=== PATIENT | male | born 1930 | race Caucasian/White ===

== ENCOUNTER 2017-08-28 11:58 | Observation (INO) | payer MEDICARE ==
[~2017-08-28] VITALS: Ht 182.9 cm; Wt 74.2 kg
--- NOTE | 2017-08-28 12:00 | NUR ---
PT DIRECTLY TO ROOM VIA WHEELCHAIR.
--- NOTE | 2017-08-28 12:27 | NUR ---
PT STATES THAT HE IS FEELING MORE SHORT OF BREATH AFTER BEGINING A NEW MEDICINE TAGRISSO 80MG THREE MONTHS AGO. APX ONE MONTH AGO SHORTNESS OF BREATH HAS BEGAN. PT IS AOX4 AND IS VERY TALKATIVE WITH NO DIFFICULTY SPEAKING. PT DENIES ANY C/P, N/V OR WEAKNESS.
--- NOTE | 2017-08-28 12:31 | NUR ---
PT MEDICATION NOT IN MED REC TAGRISSO 80 MG LAST TAKEN AT 0800 08/28/17.
[2017-08-28 12:38] LABS: HEMATOCRIT 32.2 % (39.0-50.0); HEMOGLOBIN 9.9 g/dl (14.0-18.0); IMMATURE GRANULOCYTES 0.3 % (0.0-1.0); MEAN CELL VOLUME 91.2 fL CALC (80.0-100.0); MEAN CORPUSCULAR HGB CONC 30.7 g/L CALC (32.0-36.0); NEUT# 5.69 thou/uL (1.82-7.42); RED BLOOD COUNT 3.53 mill/uL (4.70-6.10); RED CELL DISTRI WIDTH 14.7 % (11.5-15.5)
[2017-08-28 12:52] LABS: ANION GAP 20 (6-22 (CALC)); BUN 30 mg/dL (8-23); BUN/CREATININE RATIO 23 (12-20 (CALC)); CARBON DIOXIDE 25 mmol/l (22-30); CHLORIDE 105 mmol/l (95-108); CREATININE 1.3 mg/dL (0.7-1.3); GFR 52 ML/MIN (>=60 (CALC)); GFR FOR AFR.AMER. > 60 ML/MIN (>=60 (CALC)); POTASSIUM 4.3 mmol/l (3.5-5.1); SODIUM 146 mmol/l (137-146)
--- NOTE | 2017-08-28 13:13 | NUR ---
ZOSYN STARTED, EMERSON MARI MD AT BEDSIDE
--- NOTE | 2017-08-28 13:40 | NUR ---
SBAR PRINTED TO FLOOR
[2017-08-28] MEDS ORDERED: TAGRISSO PO (13:42)
--- NOTE | 2017-08-28 13:56 | NUR ---
ATTEMPTED REPORT TO [facility]- WILL RETURN CALL
--- NOTE | 2017-08-28 14:12 | NUR ---
PT RESTING ON STRETCHER, PT STATES NO NEW COMPLAINTS, IV PATENT WITH VANCO RUNNING, NO PAIN OR EDEMA AT IV SITE.
--- NOTE | 2017-08-28 14:13 | NUR ---
[facility] CALLED FOR REPORT- REPORT GIVEN TO BRIGIDA KAMARA- ACCEPTED PT.
[2017-08-28 14:30] VITALS: BP 116/65
--- NOTE | 2017-08-28 14:32 | NUR ---
Admission Note Report Given to: BRIGIDA Transported by: Wheelchair X Stretcher Transported with: X Nurse Transporter Patent IV O2 X Telemetry Technician TRANSPORTED TO [facility] [place] WITHOUT INCIDENT
--- NOTE | 2017-08-28 14:33 | NUR ---
PT ADMITTED TO [facility] ARRIVED VIA WHEELCHAIR ACCOMPANIED BY ER STAFF. PT ALERT AND ORIENTED X3, NO EDEMA. AMBULATED WELL TO SCALE THEN TO BED. ADMISSION ASSESSMENT COMPLETED AT THIS TIME. CALL LIGHT IN REACH,CONTINUE TO MONITOR.
--- NOTE | 2017-08-28 14:47 | NUR ---
PT TO RADIOLOGY VIA WHEELCHAIR ACCOMPANIED BY MORTUARY TECHNICIAN, STABLE.
[2017-08-28 17:05] VITALS: BP 132/71
--- NOTE | 2017-08-28 17:52 | NUR ---
PT REQUESTING IV CHANGE, #20 LAC REMOVED, CATHETER INTACT. NEW IV SITE TO LFA, TOLERATED WELL. CALL LIGHT IN REACH, DAUGHTER AT BEDSIDE, VOICES NO COMPLAINTS AT THIS TIME. CONTINUE TO MONITOR.
[2017-08-28 18:23] VITALS: BP 125/77
[2017-08-28 19:00] VITALS: BP 131/72
--- NOTE | 2017-08-28 19:15 | NUR ---
PT.IS UPRIGHT IN BED W/DAUGHTER AT BEDSIDE. BEDSIDE REPORT RECEIVED FROM LACHELLE AND POC DISCUSSED W/PT. PT.REPORTS "MUCH IMPROVED BREATHING" AT THIS TIME. NO S/S OF DISTRESS NOTED. WILL FOLLOW UP W/MEDICATIONS AND ASSESSMENT. CALL LIGHT AT BEDSIDE AND PT.HAS BEEN ENCOURAGED TO CALL IF ANY NEEDS ARISE.
--- NOTE | 2017-08-28 20:55 | NUR ---
PT.MEDICATED ORDER PROVIDE AND ASSESSMENT COMPLETED. LUNG SOUNDS ARE CLEAR, PT.LOCX4, POC DISCUSSED, ABD SOFT/NON-TENDER, URINAL EMPTIED OF 400CC CLEAR YELLOW URINE, DENIES ANY PAIN/N/V AT THIS TIME, NO S/S OF DISTRESS AT THIS TIME. WILL CONTINUE TO MONITOR AND ASSESS. LIGHTS AND TV LEFT ON AND CALL LIGHT AT BEDSIDE.
[2017-08-28 23:15] VITALS: BP 116/66
--- NOTE | 2017-08-29 00:15 | NUR ---
PT.IS SLEEPING AT THIS TIME, BUT AWOKE TO OUR ENTERING ROOM. V/S AND BREATHING ASSESSED. URINAL EMPTIED OF CLEAR YELLOW URINE.PT.DENIES ANY NEEDS AT THIS TIME. CALL LIGHT W/IN REACH AND PT.ENCOURAGED TO CALL IF ANY NEEDS ARISE.
--- NOTE | 2017-08-29 01:32 | NUR ---
PT.IV FLUIDS REPLENISHED, PT.AWOKE I ENTERED ROOM, BREATHING IS CLEAR AND NON LABORED. NO SOB NOTED. PT.DENIES ANY NEEDS, "JUST TO GO BACK TO SLEEP," BUT PT.APPEARS TO BE IN GOOD SPIRITS AND SHOWS NO S/S OF DISTRESS. CALL LIGHT AT SIDE AND PT.ENCOURAGED TO CALL FOR NEEDS THEY ARISE.
[2017-08-29 04:45] VITALS: BP 121/67
--- NOTE | 2017-08-29 05:05 | NUR ---
PT.IS SLEEPING WITH LIGHTS LOW, BUT AWOKE TO MY ENTERING ROOM. V/S HAVE BEEN ASSESSED, IV FLUIDS ARE RUNNING ORDERED AND SITE APPEARS HEALTHY AT THIS TIME. LUNG SOUNDS ARE CLEAR, PT.DENIES ANY NEEDS OF ASSISTANCE AT THIS TIME. LIGHTS DIMMED, PT ATTEMPTING TO RETURN TO SLEEP.
[2017-08-29 05:14] LABS: HEMATOCRIT 29.1 % (39.0-50.0); MEAN CELL VOLUME 91.2 fL CALC (80.0-100.0); MEAN CORPUSCULAR HGB 28.2 pG CALC (26.0-32.0); MEAN CORPUSCULAR HGB CONC 30.9 g/L CALC (32.0-36.0); RED BLOOD COUNT 3.19 mill/uL (4.70-6.10); RED CELL DISTRI WIDTH 14.5 % (11.5-15.5)
[2017-08-29 05:23] LABS: ANION GAP 13 (6-22 (CALC)); BUN 26 mg/dL (8-23); BUN/CREATININE RATIO 23 (12-20 (CALC)); CARBON DIOXIDE 21 mmol/l (22-30); CHLORIDE 110 mmol/l (95-108); CREATININE 1.1 mg/dL (0.7-1.3); GFR > 60 ML/MIN (>=60 (CALC)); GFR FOR AFR.AMER. > 60 ML/MIN (>=60 (CALC)); POTASSIUM 5.1 mmol/l (3.5-5.1); SODIUM 139 mmol/l (137-146)
--- NOTE | 2017-08-29 06:20 | NUR ---
PT.AMBULATED TO RESTROOM AND BACK TO BED. NO S/S OF DISTRESS NOTED AT THIS TIME. CALL LIGHT W/IN REACH AND PT.ENCOURAGED TO CALL IF ANY NEEDS OF ASSISTANCE ARISE. PT.LEFT SITTING ON SIDE OF BED PER REQUEST W/LIGHTS ON. I OFFERED ASSISTANCE TO RECLINER, BUT HE PREFERRED TO STAY ON SIDE OF BED. LUNG SOUNDS ARE CLEAR AT THIS TIME.
[2017-08-29 08:26] VITALS: BP 123/77
--- NOTE | 2017-08-29 08:26 | NUR ---
PT RESTING IN BED NO SIGNS OF DISTRESS NOTED, RESP EVEN AND UNLABORED. PT ALERT AND ORIENTED X3, NO EDEMA. ASSESSMENT COMPLETED. VSS, VOICES NO NEEDS OR COMPLAINTS AT THIS TIME. CALL LIGHT IN REACH,CONTINUE TO MONITOR.
[2017-08-29] MEDS ORDERED: PREDNISONE10 MG PO (10:06)
[2017-08-29] MEDS ORDERED: REMERON7.5 MG PO (10:08)
--- NOTE | 2017-08-29 10:25 | NUR ---
AMBULATED WITH PT AND DAUGHTER IN HALLWAY, PT TOLERATED WELL. VSS, NO SIGNS OF DISTRESS NOTED. RESP EVEN AND UNLABORED. CONTINUE TO MONITOR.
[2017-08-29 10:38] VITALS: BP 123/71
--- NOTE | 2017-08-29 12:00 | NUR ---
ORDERS FOR DISCHARGE, IV REMOVED, CATHETER INTACT, PT TOLERATED WELL. PT REQUESTING TO EAT LUNCH PRIOR TO DISCHARGE, LUNCH PROVIDED. CALL LIGHT IN REACH, CONTINUE TO MONITOR.
[2017-08-29 12:22] VITALS: BP 115/71
--- NOTE | 2017-08-29 13:04 | NUR ---
Discharge instructions given. Patient verbalizes understanding of same. Discharged in stable condition via Wheelchair to Home with family. All belongings sent with pt.
== END 2017-08-29 12:56 | disposition home or self-care (01) ==
LOC: ED 11:58 → ED-I 13:13 → ED 13:41 → MS2 13:42
PROVIDERS: Family Medicine; ADMIT Internal Medicine; ATTEND Internal Medicine
DX: J84.10 Pulmonary fibrosis, unspecified (principal); E86.0 Dehydration; C34.92 Malignant neoplasm of unspecified part of left bronchus or lung; C34.91 Malignant neoplasm of unspecified part of right bronchus or lung; R63.0 Anorexia; Z79.899 Other long term (current) drug therapy; Z85.46 Personal history of malignant neoplasm of prostate; Z92.3 Personal history of irradiation; Z87.891 Personal history of nicotine dependence; R06.02 Shortness of breath

== ENCOUNTER 2019-09-13 22:34 | Emergency (ER) | payer MEDICARE ==
[~2019-09-13] VITALS: Ht 182.9 cm; Wt 68.2 kg
[~2019-09-13 22:34] MED LIST: PREDNISONE10 MG PO; REMERON7.5 MG PO; TAGRISSO PO
[2019-09-13 23:56] LABS: HEMATOCRIT 41.1 % (39.0-50.0); HEMOGLOBIN 13.2 g/dl (14.0-18.0); IMMATURE GRANULOCYTES 0.5 % (0.0-5.0); MEAN CELL VOLUME 97.2 fL CALC (80.0-100.0); MEAN CORPUSCULAR HGB 31.2 pG CALC (26.0-32.0); MEAN CORPUSCULAR HGB CONC 32.1 g/dL CAL (32.0-36.0); NEUT# 9.73 thou/uL (1.82-7.42); RED BLOOD COUNT 4.23 mill/uL (4.70-6.10); RED CELL DISTRI WIDTH 14.2 % (11.5-15.5)
[2019-09-14 00:06] LABS: PROTHROMBIN TIME 10.5 SECONDS (9.0-12.5)
[2019-09-14 00:15] LABS: ALBUMIN 4.2 g/dL (3.2-5.0); ALKALINE PHOSPHATASE 139 u/l (38-126); BUN 55 mg/dL (8-23); BUN/CREATININE RATIO 25 (12-20 (CALC)); CHLORIDE 103 mmol/l (95-108); CREATININE 2.2 mg/dL (0.7-1.3); GFR 28 ML/MIN (>=60 (CALC)); GFR FOR AFR.AMER. 34 ML/MIN (>=60 (CALC)); POTASSIUM 4.8 mmol/l (3.5-5.1); SGOT/AST 41 u/l (19-48); SODIUM 136 mmol/l (137-146)
[2019-09-14 00:19] LABS: C-REACTIVE PROTEIN 6.7 mg/dL (0-0.9)
[2019-09-14 00:20] LABS: ANION GAP 21 (6-22 (CALC)); BILIRUBIN, TOTAL 0.8 mg/dL (0.0-1.4); CARBON DIOXIDE 17 mmol/l (22-30)
[2019-09-14 02:11] VITALS: BP 108/61
== END 2019-09-14 02:35 ==
LOC: ED 22:34
DX: I21.4 Non-ST elevation (NSTEMI) myocardial infarction (principal); J18.9 Pneumonia, unspecified organism; I50.9 Heart failure, unspecified; N17.9 Acute kidney failure, unspecified; E86.0 Dehydration; C34.90 Malignant neoplasm of unspecified part of unspecified bronchus or lung; Z79.899 Other long term (current) drug therapy; Z20.828 Contact with and (suspected) exposure to other viral communicable diseases
CPT/HCPCS: J1644